=== PATIENT | male | born 1960 | race Caucasian/White ===

== ENCOUNTER → 2016-05-28 | Outpatient (CLI) | payer SELFPAY ==
--- NOTE | 2016-05-28 13:51 | EKG ---
[address] [address] Measurements Intervals [place] Rate: 79 P: 68 CT: 137 QRS: 87 QRSD: 118 T: 63 QT: 373 QTc: 408 Interpretive Statements SINUS RHYTHM INTRAVENTRICULAR CONDUCTION DELAY NONSPECIFIC T-WAVE ABNORMALITY Compared to ECG 11/03/2014 11:32:27 No significant changes Electronically Signed On 05-28-16 14:32:31 MST by Mal Gan [email or web address]
[2016-05-28 13:54] LABS: BASOPHILS # (AUTO) 0.07 10*3/UL; BASOPHILS % (AUTO) 0.9 % (0-1); EOSINOPHILS % (AUTO) 4.8 % (0-8); HEMATOCRIT 46.4 % (42.0-52.0); HEMOGLOBIN 15.3 g/dL (14.0-18.0); IMM GRAN % (AUTO) 0.3 % (0-5); IMM GRAN# (AUTO) 0.02 10*3/UL; LYMPHOCYTES # (AUTO) 2.07 10*3/uL; LYMPHOCYTES % (AUTO) 27.7 % (10-50); MEAN CORPUSCULAR HEMOGLOBIN 31.2 PG (27-31); MONOCYTES # (AUTO) 0.59 10*3/UL (0.3-0.8); MONOCYTES % (AUTO) 7.9 % (5-15); NEUTROPHILS # (AUTO) 4.35 10*3/UL; NEUTROPHILS % (AUTO) 58.4 % (50-80); WHITE BLOOD COUNT 7.46 10^3/uL (4.8-10.8)
[2016-05-28 13:56] LABS: PLATELET MORPHOLOGY COMMENT NORMAL MORPHOLOGY (NORM)
[2016-05-28 14:03] LABS: ASPARTATE AMINO TRANSFERASE 34 IU/L (21-57); BILIRUBIN,TOTAL 0.6 mg/dL (0.3-1.2); BLOOD UREA NITROGEN 13 mg/dL (7-22); BUN/CREATININE RATIO 18.57 (6-20); CALCIUM 8.7 mg/dL (8.7-10.7); CHLORIDE 102 meq/L (98-112); CREATININE 0.7 mg/dL (0.70-1.50); EST GLOMERULAR FILTRATION > 60 (>60 ml/min/1.73m(2)); GLUCOSE 136 mg/dL (78-110); SODIUM 137 meq/L (135-145); TOTAL PROTEIN 7.6 g/dL (6.1-8.0)
--- NOTE | 2016-05-28 14:28 | DI ---
PA /LATERAL CHEST X-RAY, 05/28/2016 1:19 PM : Clinical History: Chest pain. Previous Exam: 11/03/2014. There is no acute soft tissue or bony abnormality. Heart size is normal. The patient is status post C ABG. No acute infiltrate or effusion is present. There is centrilobular emphysema. Mediastinal struct ures are normal. There are no pulmonary nodules. Readin. There is no acute infiltrate or effusion. 2. Centrilobular emphysema. Status post CABG.
== END ==
LOC: MOB LAB 13:26
PROVIDERS: ATTEND Family Medicine
DX: R07.9 Chest pain, unspecified (principal); R06.00 Dyspnea, unspecified; J43.2 Centrilobular emphysema; I10 Essential (primary) hypertension; I45.89 Other specified conduction disorders; F17.210 Nicotine dependence, cigarettes, uncomplicated
CPT/HCPCS: 36415; 71020; 80053; 83880; 84484; 85025; 93005; 93010

== ENCOUNTER 2016-06-24 11:00 | Emergency (ER) | payer SELFPAY ==
[2016-06-24] MEDS ORDERED: NORMAL SALINE 10 ML SYRINGE FLUSH IVP PRN (11:13)
[2016-06-24] MEDS ORDERED: Sodium Chloride 0.9% 1,000 ML PRIMARY IV ONE (11:13)
--- NOTE | 2016-06-24 11:15 | EKG ---
[address] [address] Measurements Intervals [place] Rate: 63 P: 73 [place]: 157 QRS: 76 QRSD: 117 T: 53 QT: 414 QTc: 421 Interpretive Statements SINUS RHYTHM INTRAVENTRICULAR CONDUCTION DELAY Compared to ECG 05/28/2016 14:52:41 T-wave abnormality no longer present Electronically Signed On 06-24-16 12:00:24 MDT by Mal Gan [email or web address]
--- NOTE | 2016-06-24 11:19 | PDOC ---
Chest Pain HPI - General Chief Complaint: Chest Pain Stated Complaint: HTN W/ CP & VISION CHANGES TODAY Date Seen by Provider: 06/24/16 Time Seen by Provider: 11:07 Source: Patient Exam Limitations: POSITIVE: No limitations Treatment Prior to Arrival: REPORTS: Aspirin (Patient reports that he took a full strength aspirin earlier this morning) Nurse's Notes Reviewed & Considered: Yes - History of Present Illness Initial Comments: The patient is a 55-year-old male who presents to the emergency department with complaints of left-sided chest and neck pain as well as elevated blood pressure. He has a known history of coronary artery disease and underwent triple bypass surgery in 2003 and had stents in 2008. He also reports that he continues to smoke and has history of hypertension. He states that for the past 2 or 3 days he has noticed that his blood pressure has been elevated in the 180s over 110 marked at home. In addition he has been having some pain/ pressure in the left upper chest with some radiation to the left shoulder and left side of his neck. This pain is worsened somewhat with activity. He reports that this pain has been fairly constant over the past several days and he rates his current pain level about a 6 or 7 out of 10. He had initially called the clinic and they recommended he come to the emergency room for evaluation. He reports that earlier this morning when he stood up from going to the bathroom he was seeing spots and felt lightheaded. This has subsequently resolved. He denies any current headache, numbness or weakness in his arms or legs, change in speech. He does report chronic shortness of breath stating "I have COPD and still smoke like a chimney". - Patient Home Medications Home Medications: Home Medications Albuterol Sulfate [Proair Hfa] 1 - 2 puff INH Q4-6H PRN #1 puff 05/02/15 Albuterol/Ipratropium Inhaler [Combivent Respimat Inhaler] 3 puff INH Q6H #2 puff 05/02/15 Budesonide/Formoterol Fumarate [SYMBICORT] 2 puff INH BID #1 puff 05/02/15 Lisinopril 20 mg PO QD #30 tab 05/02/15 Metoprolol Tartrate 50 mg PO BID #60 tab 05/05/16 Amlodipine Besylate [Norvasc] 5 mg PO DAILY #30 tab 06/24/16 - Patient Allergies Allergies/Adverse Reactions: Allergies Allergy/AdvReac Type Severity Reaction Status Date / Time cephalexin monohydrate Allergy Intermediate Hives Verified 06/24/16 11:15 [From Keflex] Past Medical History - heen HEENT History: Denies History 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 Respiratory History: Asthma, COPD Gastrointestinal History:  Additional Gastrointestinal History: DIFFICULTY SWALLOWING, FOOD STICKING/COLON POLYPS Genitourinary History: Denies History Endocrine History: Denies History Musculoskeletal History: Arthritis Prosthesis or Implant: No (HEART STENTS) Neurological History:  Additional Neurological History: HX OF TBI Blood Disorders: Denies History Psychiatric History: Denies History History of Sexually Transmitted Diseases: No Cancer History: Denies History History of MDRO: No History of Other Communicable Diseases: No Alcohol Use: Occasionally Substance Use Type: None Previous Surgical History: Yes Type / Date of Surgery: CORONARY BIPASS X 3. TONSILLECTOMY. DENTAL EXTRACTION. UMBILICAL HERNIA Anesthesia Reactions: No Malignant Hyperthermia: No Significant Family History: Cancer Past Medical History Reviewed: Reviewed - No Changes ROS - Limitations ROS Limitations: No Limitations Constitution: DENIES: Chills, Fever Cardiovascular: REPORTS: Chest Pain, Blood Pressure Problem. DENIES: Heart Racing, Heart Palpitations, Edema Respiratory: REPORTS: Shortness Of Breath (Elevated blood pressure all weekend chronic). DENIES: Cough Non Productive, Cough Productive, Hurts To Breathe Neurological: DENIES: Headache (He reports he did have a headache several days ago however this has resolved), Numbness, Weakness Gastrointestinal: REPORTS: Denies GI Symptoms Musculoskeletal: REPORTS: Denies MS Symptoms Eyes: REPORTS: Denies Symptoms ENT: REPORTS: Denies Symptoms Skin: DENIES: Rash Chest Pain PE - General Appearance General Appearance: REPORTS: Alert, Cooperative, No Acute Distress - HEENT HEENT: POSITIVE: Head Inspection Nml, Eyes Inspection Nml, Ears Inspection Nml - Neck Neck: REPORTS: Normal Inspection. DENIES: JVD Present - Respiratory Respiratory: REPORTS: No Respiratory Distress, Breath Sounds Normal - Cardiovascular Cardiovascular: REPORTS: Regular Rate and Rhythm, Heart Sounds Normal Peripheral Pulses: Dorsalis-pedis (R): 2+, Dorsalis-pedis (L): 2+ - Abdomen Abdomen: Soft: (All Quadrants), Denies Tenderness: (All Quadrants) - Skin Skin: REPORTS: Intact, No Rash - Extremities Extremity: Normal ROM: (All Extremities), Normal Inspection: (All Extremities) - Neurological / Psychological Neurological: POSITIVE: Oriented X3, Motor Normal, Sensation Normal Chest Pain Progress - Results Reviewed by me Xrays/CTs/US Reviewed by me: Yes Discussed with Radiologist: Yes Radiology Findings: Chest x-ray reveals status post CABG with no acute findings per radiologist. Lab Results Reviewed: Yes Lab Results:: Laboratory Results 06/24/16 Range/Units 11:03 WBC 7.88 (4.8-10.8) 10^3/uL RBC 5.01 (4.70-6.10) 10^6/uL Hgb 16.0 (14.0-18.0) g/dL Hct 47.6 (42.0-52.0) % MCV 95.0 H (80-90) FL MCH 31.9 H (27-31) PG MCHC 33.6 (33-37) g/dL RDW Std Deviation 45.9 (39-50) fL RDW Coeff of [place] 13.5 (11.5-14.5) % Plt Count 174 (140-350) 10*3/uL MPV 9.3 (7.4-12.2) FL Immature Gran % (Auto) 0.3 (0-5) % Neut % (Auto) 54.2 (50-80) % Lymph % (Auto) 30.5 (10-50) % [place] % (Auto) 10.5 (5-15) % Eos % (Auto) 3.7 (0-8) % Baso % (Auto) 0.8 (0-1) % Immature Gran # (Auto) 0.02 10*3/UL Neut # (Auto) 4.28 10*3/UL Lymph # (Auto) 2.40 10*3/uL [place] # (Auto) 0.83 H (0.3-0.8) 10*3/UL Eos # (Auto) 0.29 10*3/UL Baso # (Auto) 0.06 10*3/UL WBC Morphology Comment Normal morphology (NORM) Plt Morphology Comment Normal morphology (NORM) RBC Morph Comment Normal morphology (NORM) D-Dimer 0.26 (0.00-0.59) mg/L Sodium 137 (135-145) meq/L Potassium 4.3 (3.8-5.2) meq/L Chloride 102 (98-112) meq/L Carbon Dioxide 26 (23-33) meq/L Anion Gap 9 (5-20) BUN 16 (7-22) mg/dL Creatinine 1.1 (0.70-1.50) mg/dL Estimated GFR > 60 (>60 ml/min/1.73m(2)) BUN/Creatinine Ratio 14.54 (6-20) Glucose 90 (78-110) mg/dL Calculated Osmolality 284.0 (267-292) mOsm/kg Calcium 9.1 (8.7-10.7) mg/dL Magnesium 1.8 (1.6-2.4) mg/dL Total Bilirubin 0.8 (0.3-1.2) mg/dL AST 45 (21-57) IU/L ALT 42 (21-72) IU/L Alkaline Phosphatase 67 (38-126) IU/L CK-MB (CK-2) 0.71 (0.00-5.00) NG/ML Troponin I < 0.012 (< 0.040) ng/mL Total Protein 7.8 (6.1-8.0) g/dL Albumin 4.0 (3.5-4.8) g/dL Globulin 3.7 (2.50-4.10) g/dL Albumin/Globulin Ratio 1.00 L (1.3-2.0) mg/g EKG Interpreted/Reviewed By Me:: Yes EKG Interpretation:: POSITIVE: Normal Sinus Rhythm, Normal Rate, Normal Intervals, Normal QRS, Normal ST/T, Other (No acute ST segment or T-wave changes ) - Patient's Progress MDM / ED Course: The patient's blood pressure was significantly elevated on arrival at 185/119. He reports his current left upper chest and neck pain is approximately a 6 or 7 out of 10. An IV was established. Initial EKG shows normal acute ST segment changes and he is in a normal sinus rhythm. He did receive sublingual nitroglycerin. His blood pressure improved into the 120s over 70s after administration of nitroglycerin. He did not really have any significant relief in pain in the left upper chest and shoulder. On reexamination this pain was reproducible by direct palpation to the left upper chest and shoulder region. His d-dimer was normal and troponin is normal. Given the duration of his pain having been constant for the past 2-3 days and a normal troponin and normal EKG I think cardiac etiology of his pain is much less likely. He does however have a history of coronary artery disease and continues to smoke and has multiple risk factors. His blood pressure was also significantly elevated on arrival and came down after administration of nitroglycerin. I did offer admission to the hospital for continued cardiac workup as an inpatient. The patient stated that he did not really want to be hospitalized. Decision was made to go ahead and prescribe Norvasc 5 mg daily in addition to his metoprolol and lisinopril for treatment of high blood pressure. He was advised to take ibuprofen for presumed musculoskeletal pain as the source of his left shoulder and upper chest pain. He will return to the emergency room if any worsening or change in symptoms. He is advised follow-up with primary care in the next 3-5 days. He is encouraged to discuss some type of stress test as an outpatient. - Consult Counseled: POSITIVE: Patient, RE: Lab Results, RE: Radiology Results, RE: DX, RE : Need for F/U Patient Care Time - Estimated PCT Patient Care Time (In Minutes): 35 Vital Signs - VS Reviewed Vital Signs Reviewed: Yes Discharge Clinical Impression: Chest wall pain, HTN (hypertension) Discharge Disposition: Discharged to Home Condition: Stable Prescriptions / Orders: Amlodipine Besylate [Norvasc] 5 mg PO DAILY #30 tab Patient Instructions Given at Discharge: Chronic Hypertension (ED), Chest Wall Pain (ED) Additional Instructions: The EKG done here in the emergency department did not show any evidence of active heart attack and your blood work does not show any sign of current heart damage. Given that she has had pain constantly for the past 2-3 days it is unlikely that this pain is related to a heart attack. The pain does seem more musculoskeletal in nature. Your blood pressure was significantly elevated at arrival at 176/119. This came down after administration of nitroglycerin. At this time an additional blood pressure medication will be added, Norvasc 5 mg daily. Continue lisinopril and metoprolol as previously prescribed. Monitor your blood pressure and return to the emergency room with consistent blood pressures above 180/110. Although it is less likely that your pain is related to have significant risk factors for heart disease. Since you have decided not to be admitted to the hospital for further cardiac workup I would recommend discussing this with your primary care provider as soon as possible as I do think a stress test would be warranted. Return to the emergency room if any worsening pain, any worsening or change in symptoms. Recommend ibuprofen or Aleve as needed for pain currently. Follow Up With: YONAS LEONARD [Primary Care Provider] -
[2016-06-24 11:21] LABS: BASOPHILS # (AUTO) 0.06 10*3/UL; BASOPHILS % (AUTO) 0.8 % (0-1); EOSINOPHILS # (AUTO) 0.29 10*3/UL; EOSINOPHILS % (AUTO) 3.7 % (0-8); HEMATOCRIT 47.6 % (42.0-52.0); MEAN CORPUSCULAR HEMOGLOBIN 31.9 PG (27-31); MEAN CORPUSCULAR HGB CONC 33.6 g/dL (33-37); MEAN PLATELET VOLUME 9.3 FL (7.4-12.2); MONOCYTES # (AUTO) 0.83 10*3/UL (0.3-0.8); MONOCYTES % (AUTO) 10.5 % (5-15); NEUTROPHILS # (AUTO) 4.28 10*3/UL; NEUTROPHILS % (AUTO) 54.2 % (50-80); RED BLOOD COUNT 5.01 10^6/uL (4.70-6.10)
[2016-06-24 11:24] VITALS: RESP 18; TEMP 97
[2016-06-24] MEDS: NITROGLYCERIN 0.4 MG SL TAB (BOTTLE OF 3) SL PRN ×3 (11:25→11:40)
[2016-06-24 11:31] LABS: BLOOD UREA NITROGEN 16 mg/dL (7-22); BUN/CREATININE RATIO 14.54 (6-20); CALCIUM 9.1 mg/dL (8.7-10.7); EST GLOMERULAR FILTRATION > 60 (>60 ml/min/1.73m(2)); MAGNESIUM 1.8 mg/dL (1.6-2.4)
[2016-06-24 11:35] LABS: PLATELET MORPHOLOGY COMMENT NORMAL MORPHOLOGY (NORM); RBC MORPHOLOGY COMMENT NORMAL MORPHOLOGY (NORM); WBC MORPHOLOGY COMMENT NORMAL MORPHOLOGY (NORM)
[2016-06-24 11:43] LABS: CREATINE KINASE MB 0.71 NG/ML (0.00-5.00)
[2016-06-24 11:48] LABS: TROPONIN I < 0.012 ng/mL (< 0.040)
--- NOTE | 2016-06-24 11:55 | DI ---
AP CHEST X-RAY, 06/24/2016 11:13 AM : Clinical History: Chest pain. Previous Exam: 05/28/2016. There is no acute soft tissue or bony abnormality. Heart size is normal. The patient is status post C ABG. Lungs are clear. Mediastinal structures are normal. There are no pulmonary nodules. Readin. There is no acute infiltrate or effusion. 2. Status post CABG.
[2016-06-24] MEDS ORDERED: AmLODIPine Tab 5 MG TABLET PO ONE (12:15)
== END 2016-06-24 12:26 | disposition home or self-care (01) ==
LOC: ER 11:00
DX: R07.89 Other chest pain (principal); I10 Essential (primary) hypertension; R06.02 Shortness of breath; M54.2 Cervicalgia; I25.810 Atherosclerosis of coronary artery bypass graft(s) without angina pectoris
CPT/HCPCS: 71010; 80053; 82553; 83735; 84484; 85025; 85379; 93005; 93010; 99284; J7030

== ENCOUNTER → 2016-08-13 | Outpatient (CLI) | payer SELFPAY | LOC: MOB LAB 14:23 | PROVIDERS: ATTEND Family Medicine | DX: R60.0 Localized edema (principal); R06.02 Shortness of breath; F17.200 Nicotine dependence, unspecified, uncomplicated | CPT/HCPCS: 36415; 83880; 85379 ==

== ENCOUNTER → 2016-08-21 | Outpatient (CLI) | payer SELFPAY ==
--- NOTE | 2016-08-21 12:52 | DI ---
VENOUS DOPPLER ULTRASOUND OF THE LEFT LOWER EXTREMITY, 08/21/2016 12:09 PM: Clinical History: Left leg pain. Previous Exam: None. Technique: 2D real-time imaging is supplemented with color Doppler ultrasound. Compression and augmen tation maneuvers were performed. The deep venous system from the groin to the popliteal fossa is norm al. The greater saphenous vein is normal. Reading: Negative venous Doppler ultrasound of the left lower extremity for deep vein thrombosis.
== END ==
LOC: US 12:04
PROVIDERS: ATTEND Family Medicine
DX: M79.605 Pain in left leg (principal); R60.0 Localized edema
CPT/HCPCS: 93971

== ENCOUNTER → 2016-08-27 | Outpatient (CLI) | payer SELFPAY | LOC: US 13:38 | PROVIDERS: ATTEND Family Medicine | DX: R60.0 Localized edema (principal); R06.00 Dyspnea, unspecified; I10 Essential (primary) hypertension; J44.9 Chronic obstructive pulmonary disease, unspecified; Z95.1 Presence of aortocoronary bypass graft; F17.200 Nicotine dependence, unspecified, uncomplicated | CPT/HCPCS: 93306 ==

== ENCOUNTER 2017-07-11 20:21 | Observation (INO) ==
[2017-07-11] MEDS ORDERED: NITROGLYCERIN 0.4 MG SL TAB (BOTTLE OF 3) SL PRN (20:44)
[2017-07-11] MEDS ORDERED: NORMAL SALINE 10 ML SYRINGE FLUSH IVP PRN (20:44)
[2017-07-11] MEDS ORDERED: ASPIRIN 81 MG (BABY) CHEWABLE TABLET PO ONE (20:44)
[2017-07-11] MEDS ORDERED: Sodium Chloride 0.9% 1,000 ML PRIMARY IV ONE (20:44)
[2017-07-11 20:48] LABS: BASOPHILS # (AUTO) 0.07 10*3/UL; BASOPHILS % (AUTO) 1.1 % (0-1); EOSINOPHILS # (AUTO) 0.29 10*3/UL; EOSINOPHILS % (AUTO) 4.7 % (0-8); Hematocrit [HCT] 47.2 % (42.0-52.0); Hemoglobin [HGB] 15.7 g/dL (14.0-18.0); LYMPHOCYTES # (AUTO) 1.45 10*3/uL; MEAN CORPUSCULAR HEMOGLOBIN 32.6 PG (27-31); MEAN CORPUSCULAR HGB CONC 33.3 g/dL (33-37); MEAN CORPUSCULAR VOLUME 98.1 FL (80-90); MONOCYTES # (AUTO) 0.84 10*3/UL (0.3-0.8); MONOCYTES % (AUTO) 13.5 % (5-15); NEUTROPHILS # (AUTO) 3.53 10*3/UL; NEUTROPHILS % (AUTO) 56.8 % (50-80); PLATELET MORPHOLOGY COMMENT NORMAL MORPHOLOGY (NORM); RBC MORPHOLOGY COMMENT NORMAL MORPHOLOGY (NORM); RED BLOOD COUNT 4.81 10^6/uL (4.70-6.10); WBC MORPHOLOGY COMMENT NORMAL MORPHOLOGY (NORM)
[2017-07-11] MEDS ORDERED: IPRATROPIUM/ALBUTEROL SULFATE 3 ML NEB NEB ONE ×2 (20:48→20:50)
--- NOTE | 2017-07-11 20:49 | EKG ---
[address] [address] Measurements Intervals [place] Rate: 96 P: 56 [place]: 138 QRS: 72 QRSD: 115 T: 24 QT: 350 QTc: 404 Interpretive Statements SINUS RHYTHM INTRAVENTRICULAR CONDUCTION DELAY NONSPECIFIC T-WAVE ABNORMALITY Compared to ECG 11/28/2016 13:19:17 No significant changes Electronically Signed On 07-12-17 14:26:51 MDT by Mal Gan [id number]
[2017-07-11 20:51] LABS: BLOOD UREA NITROGEN 13 mg/dL (7-22); BUN/CREATININE RATIO 16.25 (6-20); SERUM ALBUMIN 4.2 g/dL (3.5-4.8)
[2017-07-11 21:18] LABS: VENOUS PH 7.49 (7.32-7.42)
--- NOTE | 2017-07-11 21:51 | DI ---
EXAM: XR Chest, 2 Views CLINICAL HISTORY: ITS.REASON dyspnea, chest pain Physician Notes: Tech Comments: TECHNIQUE: Frontal and lateral views of the chest. COMPARISON: 11/28/16 FINDINGS: Lungs: Chronic interstitial thickening. Superimposed mild prominent central peribronchial thickening noted. Flattening of the diaphragm with increased AP diameter of the lungs, consistent with chronic obstructive pulmonary disease. Mild dependent atelectasis is noted. Pleural space: Unremarkable. No pneumothorax. Heart: Cardiac size upper limits normal. Mediastinum: Unremarkable. Bones/joints: Multilevel mild disc space height loss and osteophytosis. Sternotomy wires. IMPRESSION: 1. Mild central peribronchial thickening. Query bronchitis. 2. Findings consistent with COPD.
[2017-07-11] MEDS ORDERED: LIDOCAINE W/ SODIUM BICARB 0.5 ML SYR SUBD PRN (22:49)
[2017-07-11] MEDS ORDERED: ONDANSETRON 4 MG/2 ML VIAL IVP PRN (22:49)
[2017-07-11] MEDS ORDERED: DOCUSATE 100 MG CAPSULE PO PRN (22:49)
[2017-07-11] MEDS ORDERED: TRAZODONE HCL 100 MG PO PRN (22:49)
[2017-07-11] MEDS ORDERED: ACETAMINOPHEN 325 MG TABLET PO PRN (22:49)
[2017-07-11] MEDS ORDERED: CALCIUM CARBONATE 500 MG (TUMS) CHEWABLE TABLET PO PRN (22:49)
--- NOTE | 2017-07-11 23:35 | PDOC ---
HPI - History of Present Illness Date of Service: 07/11/17 Time of Service: 23:30 Chief Complaint: Chest tightness History of Present Illness: This very pleasant 57-year-old male with known COPD, coronary artery disease status post CABG with graft vessel coronary artery disease status post stents in November 2016, hypertension, tobacco abuse, who comes in stating that he's had some chest tightness, midsternal region. He associates it with some increasing shortness of breath over the last couple of days, and a cough with phlegm production. He normally does not have phlegm. He states to me that he has not been able to sleep very well and he thinks that he may have sleep apnea. He wakes up frequently at nighttime and is long time live-in girlfriend tells him that he wakes up frequently. The patient tried trazodone for sleep but that did not work. He had bad nightmares on that. In terms of his breathing, he has tried some breathing therapies but does not notice that he is improved to a great degree. He has had chills but no fever. He has not been admitted for COPD exacerbation before. On my review of his medical record, he has some hospital stays and [place] where he has been noted to have wheezing. It cleared up at that time with breathing therapies. He is given nitroglycerin and aspirin, and neither one of those improved his pain. He was also given some DuoNeb's in the emergency room but the patient states that he is not sure that it really helped a lot. The patient had a stress test done recently [facility] or at the cardiology office, the patient does not recall where. He states he was told it was fine. He states it was a chemical stress test. Please note that the chest pain is entirely non-exertional. Past Medical History Medical History: 1. Coronary artery disease, this is graft vessel coronary artery disease status post 2 drug-eluting stents in November 2016. He recently had a stress test within the last month up in [place] but he does not recall if it was done at the cardiology office or at [facility]. 2. Tobacco abuse. 3. Hypertension. 4. COPD not on oxygen at home. 5. Anxiety disorder. 6. Insomnia probably related to obstructive sleep apnea. 7. Eczema Surgical History: CABG in 2003 and subsequent stent placement in 2016 Pertinent Family History: Mother still alive, the patient states that she has dementia or senile. Father due to bone cancer. Past Social History: Smokes pack per day, drinks 2 beers on average per day. Has a significant other. Has 4 children that are described as healthy. 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 Tobacco Use: Current Every Day Smoker In the Past 12 Months, Have Used or Abuse Any of the Following Substance: None Alcohol Use: Other (Daily, about 2 beers per day on average.) Medication / Allergies Home Medications: Home Medications 3 Medication Instructions Recorded Confirmed Type Lisinopril 20 mg PO QD #30 tab 08/21/16 07/11/17 Rx budesonide-formoterol HFA 160 2 puff INH BID 12/08/16 07/11/17 History mcg-4.5 mcg/actuation aerosol inhaler ipratropium 20 mcg-albuterol 100 1 inh INH QID 12/08/16 07/11/17 History mcg/actuation mist for inhalation albuterol sulfate HFA 90 2 puff INH Q4-6H PRN #2 device 02/13/17 07/11/17 Rx mcg/actuation aerosol inhaler ipratropium-albuterol 0.5 mg-3 3 ml INH Q4-6H PRN #25 vial 03/24/17 07/11/17 Rx mg(2.5 mg base)/3 mL nebulization soln metoprolol tartrate 50 mg tablet 50 mg PO BID #60 tab 04/09/17 07/11/17 Rx amlodipine 5 mg tablet 5 mg PO QDAY #90 tab 05/07/17 07/11/17 Rx fluocinonide 0.05 % topical cream 1 applic TOPICAL BID PRN #60 g 06/29/17 Rx gabapentin 300 mg capsule 300 mg PO tid #90 cap 06/29/17 07/11/17 Rx trazodone 100 mg tablet 100 mg PO QHS PRN #30 tab 06/29/17 07/11/17 Rx ergocalciferol (vitamin D2) 50,000 50,000 unit PO Q2W #16 cap 07/01/17 07/11/17 Rx unit capsule fenofibrate 120 mg tablet 120 mg PO QDAY #90 tab 07/02/17 07/11/17 Rx Clopidogrel Bisulfate [Clopidogrel] 75 mg PO QHS 07/11/17 07/11/17 History Allergies/Adverse Reactions: Allergies 3 Allergy/AdvReac Type Severity Reaction Status Date / Time cephalexin monohydrate Allergy Intermediate Hives Verified 07/11/17 23:05 [From Tri[employer]] Review of Systems - Review of Systems All Systems: Reviewed & No Additional Complaints Except as Stated (I did a 12 point review systems and it is negative other than that discussed in history present illness and that noted below.) - Constitutional Constitutional: REPORTS: Fever / Chills (Chills, no fever) - Respiratory Respiratory: REPORTS: Cough, Sputum, Wheezing, See HPI - Cardiovascular Cardiovascular: REPORTS: Chest Pain (Chest tightness) - Gastrointestinal Gastrointestinal / Abdominal: REPORTS: Other (Had alternating constipation and diarrhea over the last couple days, resolved) - Genitourinary Genitourinary: REPORTS: Other (Urinary frequency) - Musculoskeletal Musculoskeletal: REPORTS: Negative System Review - Neurological Neurologic: REPORTS: Negative System Review - Psychiatric Psychiatric: REPORTS: Anxiety - Additonal Details Additional ROS Details: States legs been swelling lately and his eczema has been giving him more issues as of late. Exam - Vitals Vital Signs: Vital Signs Temperature 98.8 F Temperature Source Oral Pulse Rate [Pulse Oximeter] 94 Respiratory Rate 20 Blood Pressure [Left Arm] 135/92 Pulse Ox 94 Oxygen Flow Rate 2 Oxygen Delivery Method Nasal Cannula Height 5 ft 11 in Weight 240 lb 12.8 oz - General General Appearance: No Acute Distress, Cooperative - Head Head Exam: Normal Inspection, Normocephalic, Atraumatic - Eye Eye Exam: POSITIVE: No Scleral Icterus - ENT ENT Exam: POSITIVE: Mucous Membranes Moist - Neck Neck Exam: Normal Inspection, No Tenderness, No Lymphadenopathy, No Thyromegaly , JVP is not Raised - Respiratory Respiratory Exam: POSITIVE: Normal to Percussion and Palpation, Decreased Breath Sounds, Wheezes, Coarse Breath Sounds - Cardiovascular Cardiovascular Exam: POSITIVE: RRR, No Murmur, No Clicks, No Gallops, No Rubs, No JVD - GI/Abdominal GI/Abdominal Exam: POSITIVE: Normal Bowel Sounds, Non Tender, Non Distended, Soft - Rectal Rectal Exam: POSITIVE: Deferred - External Exam: POSITIVE: Deferred Exam: POSITIVE: Deferred - Extremities Extremities Exam: POSITIVE: No Cyanosis Present, Clubbing Present, +1 Edema - Back Back Exam: POSITIVE: No CVA Tenderness - Neurological Neurological Exam: POSITIVE: Alert, Oriented x 3, No Facial Droop, Speech Intact / Clear, Moves All Extremities Equally - Psychiatric Psychiatric Exam: POSITIVE: Normal Affect, Anxious - Integumentary Integumentary Exam: POSITIVE: Dry, Intact Additional Integumentary Exam Details: Has some eczema on the heels of his feet, also on his wrists and hands. - Central Line Examination Central Line Present on Admission: No Results - Labs CBC and BMP: 07/11/17 20:35 07/11/17 20:35 Additional Lab Results: Laboratory Results 07/11/17 07/11/17 07/11/17 Range/Units 20:35 20:35 20:35 WBC 6.22 (4.8-10.8) 10^3/uL RBC 4.81 (4.70-6.10) 10^6/uL Hgb 15.7 (14.0-18.0) g/dL Hct 47.2 (42.0-52.0) % MCV 98.1 H (80-90) FL MCH 32.6 H (27-31) PG MCHC 33.3 (33-37) g/dL RDW Std Deviation 48.4 (39-50) fL RDW Coeff of [place] 13.8 (11.5-14.5) % Plt Count 202 (140-350) 10*3/uL MPV 9.0 (7.4-12.2) FL Immature Gran % (Auto) 0.6 (0-5) % Neut % (Auto) 56.8 (50-80) % Lymph % (Auto) 23.3 (10-50) % [place] % (Auto) 13.5 (5-15) % Eos % (Auto) 4.7 (0-8) % Baso % (Auto) 1.1 H (0-1) % Immature Gran # (Auto) 0.04 10*3/UL Neut # (Auto) 3.53 10*3/UL Lymph # (Auto) 1.45 10*3/uL [place] # (Auto) 0.84 H (0.3-0.8) 10*3/UL Eos # (Auto) 0.29 10*3/UL Baso # (Auto) 0.07 10*3/UL WBC Morphology Comment Normal morphology (NORM) Plt Morphology Comment Normal morphology (NORM) RBC Morph Comment Normal morphology (NORM) D-Dimer 0.43 (0.00-0.59) mg/L VBG pH (7.32-7.42) VBG pCO2 (45-55) mmHg VBG HCO3 (22-26) mmol/L VBG Base Excess (-2-2) MMOL/L Sodium 141 (135-145) meq/L Potassium 4.0 (3.8-5.2) meq/L Chloride 100 (98-112) meq/L Carbon Dioxide 26 (23-33) meq/L Anion Gap 15 (5-20) BUN 13 (7-22) mg/dL Creatinine 0.8 (0.70-1.50) mg/dL Estimated GFR > 60 (>60 ml/min/1.73m(2)) BUN/Creatinine Ratio 16.25 (6-20) Glucose 125 H (78-110) mg/dL Calculated Osmolality 292.0 (267-292) mOsm/kg Lactic Acid (0.70-2.10) MMOL/L Calcium 9.3 (8.7-10.7) mg/dL Total Bilirubin 0.4 (0.3-1.2) mg/dL AST 36 (21-57) IU/L ALT 47 (21-72) IU/L Alkaline Phosphatase 82 (38-126) IU/L CK-MB (CK-2) (0.00-5.00) NG/ML Troponin I (< 0.040) ng/mL Total Protein 7.5 (6.1-8.0) g/dL Albumin 4.2 (3.5-4.8) g/dL Globulin 3.3 (2.50-4.10) g/dL Albumin/Globulin Ratio 1.20 L (1.3-2.0) mg/g 07/11/17 07/11/17 07/11/17 Range/Units 20:35 20:35 20:44 WBC (4.8-10.8) 10^3/uL RBC (4.70-6.10) 10^6/uL Hgb (14.0-18.0) g/dL Hct (42.0-52.0) % MCV (80-90) FL MCH (27-31) PG MCHC (33-37) g/dL RDW Std Deviation (39-50) fL RDW Coeff of [place] (11.5-14.5) % Plt Count (140-350) 10*3/uL MPV (7.4-12.2) FL Immature Gran % (Auto) (0-5) % Neut % (Auto) (50-80) % Lymph % (Auto) (10-50) % [place] % (Auto) (5-15) % Eos % (Auto) (0-8) % Baso % (Auto) (0-1) % Immature Gran # (Auto) 10*3/UL Neut # (Auto) 10*3/UL Lymph # (Auto) 10*3/uL [place] # (Auto) (0.3-0.8) 10*3/UL Eos # (Auto) 10*3/UL Baso # (Auto) 10*3/UL WBC Morphology Comment (NORM) Plt Morphology Comment (NORM) RBC Morph Comment (NORM) D-Dimer (0.00-0.59) mg/L VBG pH 7.49 H (7.32-7.42) VBG pCO2 33 L (45-55) mmHg VBG HCO3 25 (22-26) mmol/L VBG Base Excess 2 (-2-2) MMOL/L Sodium (135-145) meq/L Potassium (3.8-5.2) meq/L Chloride (98-112) meq/L Carbon Dioxide (23-33) meq/L Anion Gap (5-20) BUN (7-22) mg/dL Creatinine (0.70-1.50) mg/dL Estimated GFR (>60 ml/min/1.73m(2)) BUN/Creatinine Ratio (6-20) Glucose (78-110) mg/dL Calculated Osmolality (267-292) mOsm/kg Lactic Acid 1.1 (0.70-2.10) MMOL/L Calcium (8.7-10.7) mg/dL Total Bilirubin (0.3-1.2) mg/dL AST (21-57) IU/L ALT (21-72) IU/L Alkaline Phosphatase (38-126) IU/L CK-MB (CK-2) 0.75 (0.00-5.00) NG/ML Troponin I < 0.012 (< 0.040) ng/mL Total Protein (6.1-8.0) g/dL Albumin (3.5-4.8) g/dL Globulin (2.50-4.10) g/dL Albumin/Globulin Ratio (1.3-2.0) mg/g - EKG Data -: EKG Interpreted by Me Rate: Normal EKG Shows Normal: Sinus Rhythm - EKG Data EKG Interpretation: Nonspecific ST-T Wave Changes (Nonspecific T-wave inversions.) - Imaging Status: Image Reviewed by Me (Chest x-ray appears negative for pneumonia on my view. There is some haziness in the left lower cardiac border that could be interpreted as a positive silhouette sign.) Assessment and Plan - Patient Problems (1) COPD exacerbation Current Visit: Yes Status: Acute Code(s): J44.1 - Chronic obstructive pulmonary disease with (acute) exacerbation (2) Pulmonary hypertension Current Visit: Yes Status: Acute Code(s): I27.20 - Pulmonary hypertension, unspecified (3) Coronary artery disease Current Visit: Yes Status: Acute Code(s): I25.10 - Atherosclerotic heart disease of [place] coronary artery without angina pectoris Qualifiers: Coronary Disease-Associated Artery/Lesion type: bypass graft, autologous vein Associated angina: without angina Qualified Code(s): I25.810 - Atherosclerosis of coronary artery bypass graft(s) without angina pectoris (4) Hypertension Current Visit: Yes Status: Acute Code(s): I10 - Essential (primary) hypertension Qualifiers: Hypertension type: essential hypertension Qualified Code(s): I10 - Essential (primary) hypertension (5) Hypercholesterolemia Current Visit: Yes Status: Acute Code(s): E78.00 - Pure hypercholesterolemia , unspecified (6) Obstructive sleep apnea Current Visit: Yes Status: Suspected Code(s): G47.33 - Obstructive sleep apnea (adult) (pediatric) (7) Tobacco abuse Current Visit: Yes Status: Chronic Onset Date: 08/17/15 Code(s): Z72.0 - Tobacco use - Assessment / Plan Additional Assessment/Plan Details: Admit the patient. For COPD, breathing therapies including duo nebs and albuterol, eventually patient should have full pulmonary function test done as an outpatient to determine the degree of COPD he has to figure out whether he is a candidate for LAMA and LABA therapy. Antibiotics. We'll start Rocephin and Zithromax, but I think we can de- escalate this down to Zithromax if the patient responds well in the next 24-48 hours Steroids. I'll check 2 more troponins, but highly doubt that this is acute coronary syndrome. Patient had a recent negative stress test after having 2 stents placed in November 2016. His chest tightness sounds more reminiscent of a COPD exacerbation. I will keep him on some telemetry monitoring, and if any of the enzymes come back positive, he'll need to be sent to somewhere with a price economist for further evaluation. I encouraged patient to quit smoking and will write for nicotine replacement here. I asked patient to stop drinking soda pop with sugar. I'll check for diabetes and do a hemoglobin A1c. As I'm quite suspicious he has sleep apnea, I'll fill out a patient registration form for possible sleep study with rest and sleep medicine to be done here at a later date. He would benefit from CPAP at night for what looks like obstructive sleep apnea. I reviewed echocardiogram results here. He will need an echocardiogram to look at right heart function and right ventricular function in particular at a later date with [facility] as I do strongly suspect he has pulmonary hypertension on a clinical basis. Full code. Patient agreed with the plan above.
[2017-07-11] MEDS ORDERED: AZITHROMYCIN 250 MG TABLET PO ONE (23:49)
[2017-07-11] MEDS ORDERED: ALBUTEROL SULFATE 2.5 MG/3 ML NEB PRN (23:51)
[2017-07-12] MEDS: cefTRIAXone Inj 2 GM in Sodium Chloride 0.9% 100 ML IV SCH (00:11)
[2017-07-12] MEDS: NORMAL SALINE 10 ML SYRINGE FLUSH IVP PRN ×5 (00:12→23:40)
[2017-07-12] MEDS: IPRATROPIUM/ALBUTEROL SULFATE 3 ML NEB NEB SCH ×4 (00:38→20:44)
[2017-07-12] MEDS: methylPREDNISolone 125 MG/2 ML VIAL IVP SCH ×5 (00:49→23:41)
[2017-07-12] MEDS: CLOPIDOGREL 75 MG TABLET PO SCH ×2 (00:55→21:34)
--- NOTE | 2017-07-12 04:20 | PDOC ---
Chest Pain HPI - General Chief Complaint: Chest Pain Stated Complaint: chest pain Date Seen by Provider: 07/11/17 Time Seen by Provider: 20:40 Source: Patient Exam Limitations: POSITIVE: No limitations Treatment Prior to Arrival: REPORTS: None Nurse's Notes Reviewed & Considered: Yes - History of Present Illness Initial Comments: The patient is a 57-year-old male who presents to the emergency room with a 6-7 hour history of mid anterior "chest tightness ". He denies any fevers. He states he's had some upper expiratory symptoms for the past 2 days including a minimally productive cough. Patient smokes a pack of cigarettes per day and has a history of COPD. Patient has a history of coronary artery disease and underwent a coronary artery bypass graft in 2003 and a coronary artery stenting procedure earlier this year. He does complain of some dyspnea. Body Location Affected: REPORTS: Chest Timing: REPORTS: Constant Duration: 4-6 hours (Approximately 6 hours) Severity: Moderate Persistent/Worse since (date): 07/11/17 Persistent/Worse since (time): 14:00 Context: REPORTS: Rest Quality: REPORTS: "Pain", Pressure, Other ("Tightness ") Radiation: REPORTS: None Associated Symptoms: REPORTS: Productive Cough (sputum) Modifying Factors: improves with: None Reported Similar Symptoms Previously: No Recently seen/treated/hospitalized: No Any Prior Injuries Related to Current Complaint?: No - Patient Home Medications Home Medications: Home Medications Lisinopril 20 mg PO QD #30 tab 08/21/16 budesonide-formoterol HFA 160 mcg-4.5 mcg/actuation aerosol inhaler 2 puff INH BID 12/08/16 ipratropium 20 mcg-albuterol 100 mcg/actuation mist for inhalation 1 inh INH QID 12/08/16 albuterol sulfate HFA 90 mcg/actuation aerosol inhaler 2 puff INH Q4-6H PRN #2 device 02/13/17 ipratropium-albuterol 0.5 mg-3 mg(2.5 mg base)/3 mL nebulization soln 3 ml INH Q4-6H PRN #25 vial 03/24/17 metoprolol tartrate 50 mg tablet 50 mg PO BID #60 tab 04/09/17 amlodipine 5 mg tablet 5 mg PO QDAY #90 tab 05/07/17 fluocinonide 0.05 % topical cream 1 applic TOPICAL BID PRN #60 g 06/29/17 gabapentin 300 mg capsule 300 mg PO tid #90 cap 06/29/17 trazodone 100 mg tablet 100 mg PO QHS PRN #30 tab 06/29/17 ergocalciferol (vitamin D2) 50,000 unit capsule 50,000 unit PO Q2W #16 cap 07/01 fenofibrate 120 mg tablet 120 mg PO QDAY #90 tab 07/02/17 Clopidogrel Bisulfate [Clopidogrel] 75 mg PO QHS 07/11/17 - Patient Allergies Allergies/Adverse Reactions: Allergies 3 Allergy/AdvReac Type Severity Reaction Status Date / Time cephalexin monohydrate Allergy Intermediate Hives Verified 07/11/17 23:05 [From Design A] Past Medical History - heen HEENT History: Denies History 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 Cardiovascular History: Hypertension, Previous [place], CAD, Other (please comment) Additional Cardiovasular History: Hx of CABG x 3 in 2003 along with stent placement x 1 in 2009, stent placed in apr 2017 Respiratory History: Asthma, COPD Gastrointestinal History: Other (please comment) Additional Gastrointestinal History: DIFFICULTY SWALLOWING, FOOD STICKING/COLON POLYPS Genitourinary History: Denies History Endocrine History: Denies History Musculoskeletal History: Arthritis Prosthesis or Implant: No (HEART STENTS) Neurological History:  Additional Neurological History: HX OF TBI Blood Disorders: Denies History Psychiatric History: Denies History History of Sexually Transmitted Diseases: No Male Reproductive History: Denies History Cancer History: Denies History In Past Year Been Physically Harmed or Verbally Threatened: No History of MDRO: No History of Other Communicable Diseases: No Tobacco Use: Current Every Day Smoker Alcohol Use: Occasionally In the Past 12 Months, Have Used or Abuse Any Substance: None Previous Surgical History: Yes Type / Date of Surgery: CORONARY BIPASS X 3. TONSILLECTOMY. DENTAL EXTRACTION. UMBILICAL HERNIA Anesthesia Reactions: No Malignant Hyperthermia: No Significant Family History: Cancer Past Medical History Reviewed: Reviewed - No Changes ROS - Limitations ROS Limitations: No Limitations Constitution: REPORTS: Denies Symptoms Cardiovascular: REPORTS: Chest Pain Respiratory: REPORTS: Cough Productive (Productive of mucoid sputum) Neurological: REPORTS: Denies Neuro Symptoms Gastrointestinal: REPORTS: Denies GI Symptoms Endocrine: REPORTS: Denies Symptoms Musculoskeletal: REPORTS: Denies MS Symptoms Genitourinary: REPORTS: Denies Symptoms Eyes: REPORTS: Denies Symptoms ENT: REPORTS: Denies Symptoms Skin: REPORTS: Denies Skin Symptoms Lympathic: REPORTS: Denies Lympathic Symptoms Immunologic: POSITIVE: Denies Symptoms Psychiatric: POSITIVE: Denies Psych Symptoms Chest Pain PE - General Appearance General Appearance: REPORTS: Alert, Cooperative, No Acute Distress, No Evidence of Trauma - HEENT HEENT: POSITIVE: Head Inspection Nml, Eyes Inspection Nml, Ears Inspection Nml, Nose Inspection Nml, Oral/Dental Inspect. Nml, Pharynx Inspect. Nml, PERRL, EOMI - Neck Neck: REPORTS: Normal Inspection, No Carotid Bruit - Respiratory Respiratory: REPORTS: No Respiratory Distress, Breath Sounds Normal, Chest Non- Tender - Cardiovascular Cardiovascular: REPORTS: Regular Rate and Rhythm, Heart Sounds Normal, Equal Pulses, Strong Pulses, No Murmur, No Gallop, No Friction Rub, No JVD Peripheral Pulses: Radial (R): 2+, Radial (L): 2+ - Abdomen Abdomen: Soft: (All Quadrants), Normal Bowel Sounds: (All Quadrants), Denies Tenderness: (All Quadrants), No Splenomegaly: (All Quadrants), No Hepatomegaly: (All Quadrants), No Guarding: (All Quadrants), No Rebound: (All Quadrants), No Palpable Pulse: (All Quadrants), No Palpabale Mass: (All Quadrants), No Distention: (All Quadrants), No Rigidity: (All Quadrants) - Skin Skin: REPORTS: Intact, Normal For Race, Warm, Dry, No Rash - Extremities Extremity: Non-Tender: (All Extremities), Normal ROM: (All Extremities), Normal Inspection: (All Extremities) - Neurological / Psychological Neurological: POSITIVE: Affect Apporpriate, Oriented X3, manager reimbursement Normal As Tested, Motor Normal, Sensation Normal Images - Complete Complete: 1 - Area of described chest pain Chest Pain Progress - Results Reviewed by me Xrays/CTs/US Reviewed by me: Yes Discussed with Radiologist: Yes Radiology Findings: COPD with "mild central peribronchial thickening compatible with bronchitis". Lab Results Reviewed by Me: Yes (d-dimer and troponin negative; venous blood gas pH 7.49, PCO2 33) CBC and BMP: 07/11/17 20:35 07/11/17 20:35 EKG Interpreted/Reviewed By Me:: Yes (normal sinus rhythm; nonspecific ST-T changes inferior leads) EKG Interpretation:: POSITIVE: Normal Sinus Rhythm, Normal Rate, Normal Intervals, Normal [place], Normal QRS. NEGATIVE: Normal ST/T (Nonspecific ST-T changes inferior leads) - Patient's Progress Pain Medication Addressed: POSITIVE: Yes (Nitroglycerin with some apparent improvement) School/Work Release Addressed: POSITIVE: Not Applicable Re-Examine Time: 22:20 Re-Examine Comment: Patient feeling better. Resting comfortably in ER. Status: POSITIVE: Improved, Re-Examined Quality Measure Initiative: CP/AMI: POSITIVE: EKG, ASA - Consult Consult (If Yes, Name of Consulting MD & Time Called): Yes (Dr. Wallace, hospitalist,[id number]) Consulting MD will see pt:: POSITIVE: [facility] Admit Counseled: POSITIVE: Patient, RE: Lab Results, RE: Radiology Results, RE: DX, RE : Need for F/U Patient Care Time - Estimated PCT Patient Care Time (In Minutes): 60 Vital Signs - Recent Vital Signs Vital Signs: Vital Signs (Last 8 hours) Temp Pulse Pulse Resp BP Pulse Ox 07/11/17 20:53 98 20 95 07/11/17 20:52 93 22 95 07/11/17 20:21 97.9 F 103 H 20 139/98 94 - VS Reviewed Vital Signs Reviewed: Yes Discharge Clinical Impression: Chest pain Discharge Disposition: Admit to Inpatient Condition: Fair Date Decision to Admit to Inpatient: 07/11/17 Time Decision to Admit to Inpatient: 20:40
[2017-07-12] MEDS: LISINOPRIL 20 MG TABLET PO SCH (09:23)
[2017-07-12] MEDS: GABAPENTIN 300 MG CAPSULE PO SCH ×3 (09:23→22:06)
[2017-07-12] MEDS: AmLODIPine Tab 5 MG TABLET PO SCH (09:23)
[2017-07-12] MEDS: Metoprolol TARTRATE Tab 50 MG TAB PO SCH ×2 (09:23→21:34)
[2017-07-12] MEDS: FENOFIBRATE 145 MG TABLET PO SCH (09:23)
[2017-07-12 09:29] LABS: BASOPHILS # (AUTO) 0.03 10*3/UL; BASOPHILS % (AUTO) 0.5 % (0-1); EOSINOPHILS # (AUTO) 0.01 10*3/UL; EOSINOPHILS % (AUTO) 0.2 % (0-8); Hematocrit [HCT] 46.9 % (42.0-52.0); Hemoglobin [HGB] 16.1 g/dL (14.0-18.0); LYMPHOCYTES # (AUTO) 0.87 10*3/uL; MEAN CORPUSCULAR HEMOGLOBIN 33.2 PG (27-31); MEAN CORPUSCULAR HGB CONC 34.3 g/dL (33-37); MEAN CORPUSCULAR VOLUME 96.7 FL (80-90); MEAN PLATELET VOLUME 9.4 FL (7.4-12.2); MONOCYTES # (AUTO) 0.03 10*3/UL (0.3-0.8); MONOCYTES % (AUTO) 0.5 % (5-15); NEUTROPHILS # (AUTO) 5.03 10*3/UL; NEUTROPHILS % (AUTO) 83.4 % (50-80); RED BLOOD COUNT 4.85 10^6/uL (4.70-6.10)
[2017-07-12 09:35] LABS: BLOOD UREA NITROGEN 11 mg/dL (7-22); BUN/CREATININE RATIO 15.71 (6-20)
[2017-07-12 09:40] LABS: HEMOGLOBIN A1C 5.72 % (4.2-6.0)
[2017-07-12 09:45] LABS: PLATELET MORPHOLOGY COMMENT NORMAL MORPHOLOGY (NORM); RBC MORPHOLOGY COMMENT SEE COMMENTS (NORM); WBC MORPHOLOGY COMMENT NORMAL MORPHOLOGY (NORM)
[2017-07-12] MEDS: Non-Formulary Drug (Budesonide/Formoterol Fumarate [Symbicort 160-4.5 Mcg Inhaler] 2 PUFF) INH SCH (10:55)
--- NOTE | 2017-07-12 13:16 | PDOC(PROG) ---
Interval History: Patient is doing well better breathing-larsen still has some chest tightness his troponins are negative [address] Howard he has no records of having a stress test 2 months ago patient does not remember where he had a stress test. Objective : Data - Labs CBC and BMP: 07/12/17 07:56 07/12/17 07:56 Objective : Exam - General General Appearance: Cooperative - Respiratory Respiratory Exam: Decreased Breath Sounds, Wheezes, Coarse Breath Sounds - Cardiovascular Cardiovascular Exam: RRR, No Murmur, No Clicks, No Gallops, No Rubs, PMI Non- Displaced - GI/Abdominal GI/Abdominal Exam: Normal Bowel Sounds, Non Tender, Non Distended, Soft, No Masses, No Hepatomegaly, No Splenomegaly, No Organomegaly Assessment and Plan - Patient Problems (1) Tobacco abuse Current Visit: Yes Status: Chronic Onset Date: 08/17/15 Comment: Counseled on quitting and help offered help Code(s): Z72.0 - Tobacco use (2) COPD exacerbation Current Visit: Yes Status: Acute Comment: Continue steroids antibiotics Code(s): J44.1 - Chronic obstructive pulmonary disease with (acute) exacerbation (3) Coronary artery disease Current Visit: Yes Status: Acute Comment: Scars with Dr. Howard and no record of stress test he recommended the patient have a stress test we will proceed with this and I did discuss this with the patient Code(s): I25.10 - Atherosclerotic heart disease of [place] coronary artery without angina pectoris Qualifiers: Coronary Disease-Associated Artery/Lesion type: bypass graft, autologous vein Associated angina: without angina Qualified Code(s): I25.810 - Atherosclerosis of coronary artery bypass graft(s) without angina pectoris (4) Hypertension Current Visit: Yes Status: Acute Comment: Stable at present time Code(s): I10 - Essential (primary) hypertension Qualifiers: Hypertension type: essential hypertension Qualified Code(s): I10 - Essential (primary) hypertension (5) Hypercholesterolemia Current Visit: Yes Status: Acute Comment: Stable at present Code(s): E78.00 - Pure hypercholesterolemia, unspecified (6) Obstructive sleep apnea Current Visit: Yes Status: Suspected Comment: On CPAP Code(s): G47.33 - Obstructive sleep apnea (adult) (pediatric) (7) Pulmonary hypertension Current Visit: Yes Status: Acute Comment: On Norvasc Code(s): I27.20 - Pulmonary hypertension, unspecified
[2017-07-12] MEDS ORDERED: LORazepam 2 MG/1 ML VIAL ONE (19:06)
[2017-07-13] MEDS: cefTRIAXone Inj 2 GM in Sodium Chloride 0.9% 100 ML IV SCH (01:13)
[2017-07-13] MEDS: NORMAL SALINE 10 ML SYRINGE FLUSH IVP PRN ×2 (01:14→06:06)
[2017-07-13] MEDS: Non-Formulary Drug (Budesonide/Formoterol Fumarate [Symbicort 160-4.5 Mcg Inhaler] 2 PUFF) INH SCH ×2 (04:52→10:58)
[2017-07-13] MEDS: IPRATROPIUM/ALBUTEROL SULFATE 3 ML NEB NEB SCH ×3 (04:53→13:52)
[2017-07-13] MEDS: methylPREDNISolone 125 MG/2 ML VIAL IVP SCH ×2 (06:05→11:57)
[2017-07-13 06:57] VITALS: RESP 20
[2017-07-13] MEDS ORDERED: LORazepam 2 MG/1 ML VIAL IVP ONE (09:38)
--- NOTE | 2017-07-13 10:25 | DCSUMMARY ---
Hospitalization Summary Hospital Course: Final Discharge Diagnosis: Current Visit Problems Problem Status Onset Code COPD exacerbation Acute J44.1 Coronary artery disease Acute I25.10 Hypertension Acute I10 Hypercholesterolemia Acute E78.00 Obstructive sleep apnea Suspected G47.33 Pulmonary hypertension Acute I27.20 Chest pain Acute R07.9 Tobacco abuse Chronic 08/17/15 Z72.0 Diagnostic Data, Laboratory Data, and Procedures of Signifigance: History and Physical pertinent to Admission: Course of Hospitalization: Is a very nice 57-year-old gentleman with history of COPD, coronary artery disease with previous bypass comes in with chest pain and COPD exacerbation heart to discern if the chest pain was from his breathing or from his coronary artery disease I discussed the case with Dr. Howard his commissioner of internal revenue he did not have any records of him having a stress test so we proceeded with doing a Lexiscan stress test patient is improved dramatically from his COPD exacerbation on physical exam and also how he feels and looks overall clinically if stress test is negative he will be discharged home in stable and improved condition I counseled him extensively on smoking 6 patient and offered help if he needed it he will follow-up with his primary care physician in a few days. He will be on a tapering dose of steroids plus antibiotics for his COPD exacerbation On the date of discharge, the patient was examined: Gen.: No acute distress, alert, nontoxic Heart: Regular rate and rhythm, no murmurs, clicks, gallops, or rubs Lungs: Clear to auscultation bilaterally, breathing is nonlabored Abdomen/GI: Normal tones on auscultation, soft, nontender, nondistended Musculoskeletal/extremities: No clubbing, cyanosis, or edema Vitals reviewed and are listed below Vital Signs (24 hrs) Temp Pulse Pulse Resp BP Pulse Ox 07/13/17 08:24 97.2 F 95 20 143/72 92 07/13/17 07:00 86 95 92 07/13/17 06:56 88 20 94 07/13/17 06:55 93 20 94 07/13/17 04:18 98 F 102 H 28 H 161/85 92 07/13/17 03:00 91 92 07/13/17 01:00 97.6 F 97 20 155/76 90 07/13/17 00:14 91 07/12/17 23:00 95 93 07/12/17 20:42 98.4 F 104 H 20 136/78 93 07/12/17 19:00 112 H 96 93 07/12/17 13:02 91 20 90 07/12/17 13:01 93 20 90 07/12/17 12:47 97.2 F 96 20 147/75 91 07/12/17 11:00 88 92 Assessment and Plan: 1. As per discharge assessments above 2. Disposition: Home 3. Condition on discharge, stable and improved. 4. Diet: regular diet 5. Activities: resume normal activities 6. Follow-Up: 1. PCP 2. 7. Medications at the Time of Discharge: Home Medications 3 Medication Instructions Recorded Confirmed Type Lisinopril 20 mg PO QD #30 tab 08/21/16 07/11/17 Rx budesonide-formoterol HFA 160 2 puff INH BID 12/08/16 07/11/17 History mcg-4.5 mcg/actuation aerosol inhaler ipratropium 20 mcg-albuterol 100 1 inh INH QID 12/08/16 07/11/17 History mcg/actuation mist for inhalation albuterol sulfate HFA 90 2 puff INH Q4-6H PRN #2 device 02/13/17 07/11/17 Rx mcg/actuation aerosol inhaler ipratropium-albuterol 0.5 mg-3 3 ml INH Q4-6H PRN #25 vial 03/24/17 07/11/17 Rx mg(2.5 mg base)/3 mL nebulization soln metoprolol tartrate 50 mg tablet 50 mg PO BID #60 tab 04/09/17 07/11/17 Rx amlodipine 5 mg tablet 5 mg PO QDAY #90 tab 05/07/17 07/11/17 Rx fluocinonide 0.05 % topical cream 1 applic TOPICAL BID PRN #60 g 06/29/17 Rx gabapentin 300 mg capsule 300 mg PO tid #90 cap 06/29/17 07/11/17 Rx trazodone 100 mg tablet 100 mg PO QHS PRN #30 tab 06/29/17 07/11/17 Rx ergocalciferol (vitamin D2) 50,000 50,000 unit PO Q2W #16 cap 07/01/17 07/11/17 Rx unit capsule fenofibrate 120 mg tablet 120 mg PO QDAY #90 tab 07/02/17 07/11/17 Rx Clopidogrel Bisulfate Clopidogrel 75 mg PO QHS 07/11/17 07/11/17 History Azithromycin Zithromax 500 mg PO DAILY #3 tab 07/12/17 Rx 8. Time, care, counseling and coordination of care for this discharge is greater than 30 minutes. Exam - Vitals Vital Signs: Vital Signs Temperature 97.2 F Temperature Source Temporal Artery Scan Pulse Rate [Pulse Oximeter] 95 Pulse Rate 86 Respiratory Rate 20 Blood Pressure [Left Arm] 143/72 Pulse Ox 92 Oxygen Flow Rate 2 Oxygen Delivery Method Nasal Cannula Height 5 ft 11 in Weight 238 lb 8 oz Patient Problems - Patient Problem List (1) Tobacco abuse Current Visit: Yes Status: Chronic Onset Date: 08/17/15 Code(s): Z72.0 - Tobacco use Category: Medical (2) COPD exacerbation Current Visit: Yes Status: Acute Code(s): J44.1 - Chronic obstructive pulmonary disease with (acute) exacerbation Category: Medical (3) Coronary artery disease Current Visit: Yes Status: Acute Code(s): I25.10 - Atherosclerotic heart disease of [place] coronary artery without angina pectoris Qualifiers: Coronary Disease-Associated Artery/Lesion type: bypass graft, autologous vein Associated angina: without angina Qualified Code(s): I25.810 - Atherosclerosis of coronary artery bypass graft(s) without angina pectoris Category: Medical (4) Hypertension Current Visit: Yes Status: Acute Code(s): I10 - Essential (primary) hypertension Qualifiers: Hypertension type: essential hypertension Qualified Code(s): I10 - Essential (primary) hypertension Category: Medical (5) Hypercholesterolemia Current Visit: Yes Status: Acute Code(s): E78.00 - Pure hypercholesterolemia , unspecified Category: Medical (6) Obstructive sleep apnea Current Visit: Yes Status: Suspected Code(s): G47.33 - Obstructive sleep apnea (adult) (pediatric) Category: Medical (7) Pulmonary hypertension Current Visit: Yes Status: Acute Code(s): I27.20 - Pulmonary hypertension, unspecified Category: Medical
[2017-07-13] MEDS: FENOFIBRATE 145 MG TABLET PO SCH (10:57)
[2017-07-13] MEDS: Metoprolol TARTRATE Tab 50 MG TAB PO SCH (10:57)
[2017-07-13] MEDS: AmLODIPine Tab 5 MG TABLET PO SCH (10:57)
[2017-07-13] MEDS: GABAPENTIN 300 MG CAPSULE PO SCH ×2 (10:57→14:35)
[2017-07-13] MEDS: LISINOPRIL 20 MG TABLET PO SCH (10:57)
[2017-07-13 12:29] VITALS: BP 141/85; TEMP 97.8
[2017-07-13 13:55] VITALS: O2SAT 91
--- NOTE | 2017-07-13 14:05 | DI ---
2 DAY LEXISCAN STRESS & REST MYOCARDIAL PERFUSION SCANS, 07/12/2017 1:20 PM : Clinical History: Chest pain Previous Exam: None at this facility. The patient was stressed by Dr. Mor Escobar MD The standard Lexiscan protocol was used. Please see the Doctor's report. At the designated time, 37.5 mCi of 99Tc-sestimibi was injected IV. Stress gated tomograms were acquired within one hour of the i njection. For the resting scans, 35.6 mCi was injected IV and resting gated tomograms were acquired in similar fashion. Stress scans were performed on 07/12/17; the resting scans were performed on 07/13/17. Quantitative and qualitative analyses were performed. Quantitative analysis was performed with the [place] [facility] [id number] protocols. Very low dose limited CT scans of the chest are o btained through the level of the heart for attenuation correction of the gated stress and rest cardia c SPECT data. Non-attenuated and attenuated scans were processed for review, and the attenuated scans were used for final interpretation of this study. Review of the raw data images and quality improvement specialist files indicate that these series of examinations ar e of excellent quality. Stress and rest left ventricular chamber sizes are normal. Stress and rest LV EF are 66 % and 77 %, respectively. There is no evidence of ischemia. There is some airspace disease noted within the right lung seen on both days of scanning. Transient ischemic dilatation ratio is 1.2, with a normal range up to 1.22 for patients stre ssed with the Von protocol and up to 1.33 for patients stressed with the Lexiscan protocol. The very low dose CT scans through the level of the heart demonstrate several coronary artery calcifi cations. There is no adenopathy or evidence of lung nodules. Reading: No evidence of ischemia. Normal wall motion and ejection fraction.
[2017-07-14] MEDS ORDERED: predniSONE Tab 20 MG TAB PO SCH ×2 (09:00)
--- NOTE | 2017-07-16 11:13 | STRESSTEST ---
[facility] Interpretive Statements 57 yo male with hx of CAD and prevoius srent comes in which chest pain .negative troponins x3 no acute changes on steress portion will awaiit pictures [email or web address]
[2017-07-25] MEDS ORDERED: ERGOCALCIFEROL 50,000 IU CAPSULE PO SCH (09:00)
== END 2017-07-13 14:50 | disposition home or self-care (01) ==
LOC: ER 20:21 → MED/SURG 20:21
PROVIDERS: ADMIT Family Medicine; ATTEND Family Medicine